=== PATIENT | female | born 1995 | race Asian ===

== ENCOUNTER 2017-02-24 20:25 | Emergency (ER) | payer OTHER, SELFPAY ==
[~2017-02-24] VITALS: Ht 165.1 cm; Wt 66.2 kg
[2017-02-24] MEDS ORDERED: NS 1,000 ML IV SCH (21:59)
[2017-02-24] MEDS ORDERED: fentaNYL 100 MCG/2 ML INJECTION (J3010) IV ONE (22:00)
[2017-02-24] MEDS ORDERED: ONDANSETRON 4MG/2ML VIAL (J2405) IV ONE (22:00)
[2017-02-24] MEDS ORDERED: PROPOFOL 200 MG/20 ML VIAL IV PRN (22:00)
[2017-02-24 23:30] VITALS: BP 126/74
--- NOTE | 2017-02-25 09:22 | REP ---
RIGHT SHOULDER, TWO VIEWS: 02/24/2017. Clinical history. Shoulder pain, dislocation. Findings: The two-views show anterior inferior dislocation of the humeral head from the glenoid. There is no visible fracture. The AC joint is without widening or elevation. Clavicle, ribs and scapula without visible fracture. Impression: 1. Anterior-inferior complete dislocation of the humeral head from the glenoid. No fracture. Signed by Ramy Neal MD 02/25/2017 10:51 A
--- NOTE | 2017-02-25 09:23 | REP ---
RIGHT SHOULDER ONE VIEW: 02/24/2017. Clinical history: Post reduction for anterior dislocation. Findings: Compared to the prereduction images, the humeral head has more normal alignment in relationship to the glenoid. AC joint is maintained. There is no visible fracture. Signed by Ramy Neal MD 02/25/2017 10:51 A
== END 2017-02-24 23:54 | disposition home or self-care (01) ==
LOC: M ED 21:49
DX: S43.014A Anterior dislocation of right humerus, initial encounter (principal); X50.9XXA Other and unspecified overexertion or strenuous movements or postures, initial encounter; Y92.89 Other specified places as the place of occurrence of the external cause; Y93.89 Activity, other specified; Y99.8 Other external cause status
CPT/HCPCS: 23650; 73020; 73030; 93041; 96374; 96375; 99152; 99285; J2405; J3010